=== PATIENT | female | born 1995 | race Caucasian/White ===

== ENCOUNTER → 2022-07-28 | Outpatient (CLI) | payer OTHER ==
[2022-07-28 19:34] LABS: FREE T4 0.83 NG/DL (0.76-1.46); HCG, SERUM QUANTITATIVE < 1.0 MIU/ML
[2022-07-31 09:40] LABS: PROGESTERONE 2.06 NG/ML
[2022-07-31 09:41] LABS: FOLLICLE STIMULATING HORMONE 4.6 mIU/mL; PROLACTIN 18.8 NG/ML
== END ==
LOC: M PLALAB 15:24
PROVIDERS: ATTEND Specialist
DX: N92.6 Irregular menstruation, unspecified (principal)

== ENCOUNTER → 2022-10-17 | Outpatient (REF) | payer OTHER ==
[2022-10-17 17:51] LABS: HEMOGLOBIN 11.2 g/dl (12.0-15.5); MEAN CORPUSCULAR HEMOGLOBIN 28.4 pg (27.0-33.0); MEAN CORPUSCULAR HGB CONC 32.9 g/dl (32.0-36.5); MEAN CORPUSCULAR VOLUME 86.3 fl (80.0-96.0); PLATELET COUNT, AUTOMATED 299 10^3/uL (150-450); RED BLOOD COUNT 3.94 10^6/uL (4.00-5.40); WHITE BLOOD COUNT 11.6 10^3/uL (4.0-10.0)
[2022-10-17 18:46] LABS: HIV 1&2 SCREEN CENTAUR NEGATIVE (NEGATIVE)
[2022-10-17 18:54] LABS: HEPATITIS C VIRUS ABY INDEX 0.1 INDEX (<0.8)
[2022-10-17 20:20] LABS: GC DNA AMPLIFICATION NEGATIVE (NEGATIVE)
== END ==
LOC: M SFHCWAGY 17:16
PROVIDERS: ATTEND Specialist
DX: Z34.81 Encounter for supervision of other normal pregnancy, first trimester (principal)

== ENCOUNTER → 2022-12-27 | Outpatient (CLI) | payer OTHER | LOC: M RAD 15:02 | PROVIDERS: ATTEND Obstetrics & Gynecology | DX: Z34.92 Encounter for supervision of normal pregnancy, unspecified, second trimester (principal); Z3A.21 21 weeks gestation of pregnancy ==

== ENCOUNTER → 2023-02-14 | Outpatient (CLI) | payer OTHER ==
[2023-02-14 15:50] LABS: HEMATOCRIT 29.8 % (36.0-47.0); HEMOGLOBIN 9.7 g/dl (12.0-15.5); MEAN CORPUSCULAR HGB CONC 32.6 g/dl (32.0-36.5); MEAN CORPUSCULAR VOLUME 85.9 fl (80.0-96.0); PLATELET COUNT, AUTOMATED 218 10^3/uL (150-450); RED BLOOD COUNT 3.47 10^6/uL (4.00-5.40); WHITE BLOOD COUNT 11.4 10^3/uL (4.0-10.0)
[2023-02-14 17:12] LABS: GC DNA AMPLIFICATION NEGATIVE (NEGATIVE)
== END ==
LOC: M PLALAB 13:08
PROVIDERS: ATTEND Obstetrics & Gynecology
DX: O30.042 Twin pregnancy, dichorionic/diamniotic, second trimester (principal); Z3A.00 Weeks of gestation of pregnancy not specified

== ENCOUNTER → 2023-02-14 | Outpatient (CLI) | payer OTHER | LOC: M WHC 12:01 | PROVIDERS: ATTEND Obstetrics & Gynecology | DX: O30.042 Twin pregnancy, dichorionic/diamniotic, second trimester (principal) ==

== ENCOUNTER → 2023-03-07 | Outpatient (CLI) | payer OTHER | LOC: M LAB 06:46 | PROVIDERS: ATTEND Specialist | DX: R73.09 Other abnormal glucose (principal) ==

== ENCOUNTER 2023-03-08 07:24 | Outpatient (CLI) | payer OTHER ==
[~2023-03-08] VITALS: Ht 167.6 cm; Wt 90.0 kg
[2023-03-08] MEDS ORDERED: IRON SUCROSE 500 MG in NS 250 ML OVER 4 HRS IV ONE (07:30)
[2023-03-08 07:32] VITALS: BP 131/77; O2SAT 99
[2023-03-08 09:00] VITALS: BP 113/71; O2SAT 100
[2023-03-08 10:00] VITALS: BP 121/68; O2SAT 97
[2023-03-08 11:00] VITALS: BP 125/81; O2SAT 97
[2023-03-08 12:11] VITALS: BP 118/75; O2SAT 97
== END 2023-03-08 12:15 | disposition home or self-care (01) ==
LOC: M INFU 07:24
PROVIDERS: ATTEND Specialist
DX: D64.9 Anemia, unspecified (principal)
CPT/HCPCS: 96365; 96366; J1756

== ENCOUNTER → 2023-03-14 | Outpatient (CLI) | payer OTHER | LOC: M RAD 12:50 | PROVIDERS: ATTEND Obstetrics & Gynecology | DX: O30.043 Twin pregnancy, dichorionic/diamniotic, third trimester (principal); Z3A.32 32 weeks gestation of pregnancy ==

== ENCOUNTER 2023-03-30 15:39 | Outpatient (CLI) | payer OTHER ==
[~2023-03-30] VITALS: Ht 165.1 cm; Wt 94.7 kg
[2023-03-30 16:17] VITALS: BP 120/81
[2023-03-30 16:18] VITALS: O2SAT 97
[2023-03-30] MEDS ORDERED: PRENTAB9 PO (16:25)
[2023-03-30] MEDS ORDERED: TUMS500C PO (16:25)
[2023-03-30] MEDS ORDERED: ACET-1349 PO (16:25)
[2023-03-30 17:59] VITALS: BP 133/83
[2023-03-30 20:49] VITALS: BP 117/78
[2023-04-04] MEDS ORDERED: URSO300C3 PO (12:34)
== END 2023-03-30 21:42 | disposition home or self-care (01) ==
LOC: M LDO 15:39
PROVIDERS: ATTEND Advanced Practice Midwife
DX: O26.893 Other specified pregnancy related conditions, third trimester (principal); R10.2 Pelvic and perineal pain; O30.043 Twin pregnancy, dichorionic/diamniotic, third trimester; Z3A.34 34 weeks gestation of pregnancy
CPT/HCPCS: 59025; G0463

== ENCOUNTER → 2023-04-02 | Outpatient (CLI) | payer OTHER ==
[~2023-04-02] MED LIST: ACET-1349 PO; PRENTAB9 PO; TUMS500C PO; URSO300C3 PO
[2023-04-02 15:02] LABS: ALBUMIN 2.3 G/DL (3.2-5.2); BILIRUBIN,DIRECT 0.1 MG/DL (<0.4); BILIRUBIN,TOTAL 0.3 MG/DL (0.3-1.2); TOTAL PROTEIN 5.5 G/DL (5.7-8.2)
== END ==
LOC: M PLALAB 10:32
PROVIDERS: ATTEND Specialist
DX: O30.043 Twin pregnancy, dichorionic/diamniotic, third trimester (principal); Z3A.00 Weeks of gestation of pregnancy not specified
CPT/HCPCS: 36415; 59025; 80076; 82239; G0463